=== PATIENT | male | born 1990 | race Caucasian/White ===

== ENCOUNTER → 2020-01-07 | Outpatient (CLI) | payer BC ==
--- NOTE | 2020-01-07 15:23 | RAD ---
EXAM DESCRIPTION: Ankle,Right 3 Views CLINICAL HISTORY: 29 years, Male, ANKLE PAIN RIGHT COMPARISON: None. TECHNIQUE: AP/lateral/oblique of the right ankle FINDINGS: Intact medial and lateral malleolus. There is no soft tissue swelling laterally or medially. Intact proximal metatarsals. Intact dome of the talus. Lateral view shows no evidence of fracture of the body of the talus or calcaneus. No calcaneal spurring is seen. Degenerative spurring of the anterior ankle joint. IMPRESSION: Negative for fracture or dislocation. Electronically signed by: Aly Ren MD 01/07/2020 3:22 PM CDT
== END ==
LOC: RAD 09:54
PROVIDERS: ATTEND Orthopaedic Surgery
DX: M25.571 Pain in right ankle and joints of right foot (principal)